=== PATIENT | male | born 1950 | race Caucasian/White ===

== ENCOUNTER 2017-06-17 05:19 | Inpatient (IN) | payer MEDICARE, SELFPAY ==
[2017-05-26 14:06] VITALS: BP 117/78; PULSE 54; RESP 16; TEMP 36.9; O2SAT 96; BMI 26.3
--- NOTE | 2017-05-26 14:23 | SDCEKG_ITS ---
Test Reason : Blood Pressure : / mmHG Vent. Rate : 052 BPM Atrial Rate : 052 BPM P-R Int : 168 ms QRS Dur : 090 ms QT Int : 410 ms P-R-T Axes : 076 -23 028 degrees QTc Int : 381 ms Sinus bradycardia Otherwise normal ECG Confirmed by LYNN MEJIA, NICHOLAS ([id number]), marketing editor JASBIR OSEGUERA ([id number]) on 05/27/2017 3:02:19 PM Referred By: READER PROJ Confirmed By:NICHOLAS BAILEY MD
[2017-06-17] VITALS (12 sets, daily range): BP systolic 93–111; BP diastolic 45–64; PULSE 40–58; RESP 14–18; TEMP 36.2–37.3; O2SAT 94–100; BMI 26.3; BMI 26.4
--- NOTE | 2017-06-17 | PROST_PTH ---
PATIENT: GAYLE ARCHULETA LOC: MS3 U#:[id number] AGE/SX: 67/M ROOM: [facility] RE06/17/[address]: Dr. Alpesh Thomson MD : 1950 BED: 1 DIS: 06/19/2017 SPEC #: [id number] RECD: 06/18/17 14:49 STATUS: BRENDAN RETyrese #: [id number] CHIDI: 06/17/17 00:[address]: Alpesh Thomson DEPT: SURGICAL PATHOLOGY RECD BY: Shashank Hastings ENTERED: 06/18/17 14:49 SP TYPE: PROSTATE OTHR DR: Dr. Kenny Gonsales MD Tissues: A - Prostate, NOS B - Lymph node of pelvis, NOS C - Lymph node of pelvis, NOS Procedures: Surgery Specimen Level V Surgery Specimen Level HEADER OPERATION: Laparoscopic robotic prostatectomy PRE-OP DIAGNOSIS: Prostate cancer TISSUE SUBMITTED: A ? Prostate, B ? Right pelvic lymph node, C ? Left pelvic lymph node MICROSCOPIC DIAGNOSIS A. Prostate, radical prostatectomy: Adenocarcinoma. See cancer checklist below. B. Right pelvic lymph node, regional lymphadenectomy: One out of one lymph node negative for carcinoma. C. Left pelvic lymph node, regional lymphadenectomy: One out of one lymph node negative for carcinoma. AM:lázaro 06/23/17 COMMENT PROSTATE CANCER (RADICAL) SUMMARY: Procedure ? radical prostatectomy Prostate size ? 4.8 x 3.5 x 3.3 cm Lymph node sampling ? pelvic lymph node dissection (see specimens B & C) Histologic type - adenocarcinoma Histologic grade (Ogden Pattern): Primary pattern - 3 Secondary pattern - 3 Total Ogden score - 6 Tumor Quantitation ? 1.5 x 1.4 x 0.5 cm Extraprostatic extension ? not identified Seminal vesicle invasion - not identified Margins ? uninvolved by invasive carcinoma. Treatment effect on carcinoma - unknown Lymph-Vascular invasion ? not identified Perineural invasion - present PATHOLOGIC STAGE: pT2a N0 Mx The above summary is in compliance with [employer] (CAP) Cancer Protocols Checklist and [place] [employer] Committee on Cancer (AJCC), Staging Manual, 8th Ed. Case has been reviewed in consultation with Dr. Pelayo who concurs with the above diagnosis. IDC:[id number] MICROSCOPIC DESCRIPTION Slides are reviewed. GROSS DESCRIPTION A - Received in fixative is one container labeled with the patient's name and designated prostate. The specimen consists of a prostate gland with attached right and left seminal vesicles. The specimen weighs 47 gm. The prostate measures 4.8 cm transversely, 3.5 cm anterior-posteriorly and 3.3 cm craniocaudally. The seminal vesicles in aggregate measure 4 x 4 x 1.2 cm. The specimen is differentially inked as follows: anterior ? red, right side ? blue, left side ? green and entire posterior surface ? black. On palpation, no rubbery nodularities are identified. The specimen is serially sectioned from apex of gland to base of gland at approximately 3 to 4 mm sections. No distinct mass lesion is identified. Sections of the seminal vesicles are grossly unremarkable. Sections are submitted as follows: 1 ? distal urethral shave margin, 2 ? proximal urethral shave margin (bladder shave), 3 ? seminal vesicles, 4 & 5 ? most basal section, 6-9 ? apex, 10-15 ? mid portion of gland, 16-18 ? base of gland. B - Received in fixative is one container labeled with the patient's name and designated right pelvic lymph node. The specimen consists of an irregular fragment of roberts-yellow fatty tissue measuring 3 x 2.5 x 1 cm. The specimen is sectioned and submitted in its entirety in two cassettes. C - Received in fixative is one container labeled with the patient's name and designated left pelvic lymph node. The specimen consists of an irregular fragment of roberts-yellow fatty tissue measuring 3.5 x 2 x 0.8 cm. The specimen is sectioned and submitted in its entirety in two cassettes. / AM:lázaro 06/19/17 TC:0 CPT: 18527, 10764 x2
[2017-06-17 07:02] LABS: Hematocrit 43.7 % (40-54); Hemoglobin 14.7 g/dl (13.0-16.5); Mean Corp Hgb Conc 33.6 g/gl (32-36); Mean Corpuscular Hgb 31.9 pg (27.0-32.0); Mean Corpuscular Volume 94.8 fL (80-94); Mean Platelet Vol. 8.8 fl (6.2-12.0); Platelet Count 222 K/mm3 (150-450); RBC Distribution Width CV 12.9 % (11.6-14.6); RBC Distribution Width SD 44.8 fl (35.1-43.9); Red Blood Count 4.61 M/mm3 (4.6-6.2); White Blood Count 4.9 K/mm3 (4.4-11.0)
[2017-06-17 07:16] LABS: Scan Indicated on CBC? Y/N NO
[2017-06-17] MEDS: Cefazolin 2 GM in 0.9% Normal Saline 100 ML IV (07:33)
--- NOTE | 2017-06-17 12:00 | PCM.OPRPT ---
Problem List (1) Prostate cancer Status: Acute Report of Operation Date of Procedure: 06/17/17 Pre-Operative Diagnosis: Prostate cancer Post-Operative Diagnosis: Same Surgery/Procedure Performed:: Laparoscopic robotic assisted radical prostatectomy, suture suspension of the urethra, bilateral pelvic lymph node dissection, EMG monitoring of the pelvic lymph nodes and urethra sphincter Description of Surgical Findings:: 67-year-old male was taken back to the operating room after smooth induction of general anesthesia he is placed in dorsal lithotomy position the abdomen was shaved prepped and draped in usual sterile fashion made a small incision supraumbilically introduced the Veress needle into the peritoneal cavity insufflated the peritoneal cavity with CO2 gas, then placed my camera trocar right arm trocar left arm trocar third arm variceal port and suction port. The robot was docked I first went behind the bladder into the duct pouch of Chicho and dissected out the right vas deferens, the left vas deferens, right seminal vesicle and left seminal vesicle and then created a space below the prostate above the fascia. I then pulled out of the pelvis and we dropped the bladder created the space of Retzius put the bladder on traction with the fourth arm cleaned off the anterior surface of the prostate incised the lateral pelvic wall and the right side inside the lateral pelvic on the left side dissected out the apex place a stitch in the dorsal vein complex I then identified the capsule the prostate and the levator and the fascia top of the prostate this was cleared off in order to allow for dissection of the neurovascular bundles off the right and left side I then went to the bladder neck transected through the bladder neck of the junction between the prostate and the bladder is of the bladder neck sparing procedure and then transected through the bladder and prostate came down to the seminal vesicles these were put on traction upwardly I then placed the prostate on lateral traction I put the EMG monitors inside the pelvic area on the lateral pelvic wall and we stimulated along the lateral pelvic wall identified the right nerve and then we went a one along the left pelvic wall identify the left nerve I then perform nerve sparing procedure in the right side came to the vessels with clips and then peeled the neurovascular bundle off the right posterior aspect of the prostate all the way to the apex then went to the left side the prostate with a traction the left side came through the pedicle of the prostate clip was placed and then released neurovascular on the left side all the way up to the apex. I then transected to the dorsal vein complex put extra stitches in the dorsal vein we then check for EMG monitoring again there was good stimulation the right side good stimulation in the left side I then transected to the through the urethra and the prostate was then removed and put in Endo Catch bag we then did Super Stiff suture suspension of the urethra started at the bladder neck at 12:00 to the 6:00 ran the suspension the sutures between the bladder neck and the urethra all the way around the catheter flushed the catheter there is no leakage and then put 10 cc in the balloon. We then dissected out the lymph nodes in the right pelvic wall these were taken out the obturator space and sent off as a specimen we then dissected the lymph nodes off the left pelvic wall these were taken from the refinery operator coking space and sent off as specimen. At the end of the case there was a little bit of oozing from the right lateral wall we placed a wrist and we also placed FloSeal to slow this down really could not get to stop completely but it was only minor amount of oozing so decided to leave it alone and then we extracted the prostate through the 1012 trocar we closed our trocar sites with stitches ports were removed the subcuticular stitches were used to close the incisions patient's anesthetic was reversed to take back to PACU in good condition. Type of Anesthesia:: General Drains: marrero - Admit VTE Documentation VTE Present on Admission: No VTE Mechan Device Prophylaxis: SCD's
[2017-06-17] MEDS: Ketorolac 15 MG/ML Vial IV ×3 (12:38→23:47)
[2017-06-17] MEDS: Docusate Sodium 100 MG Capsule 200 MG PO ×2 (14:37→21:52)
[2017-06-17] MEDS: Ciprofloxacin 500 MG Tablet PO ×2 (14:37→21:52)
[2017-06-17] MEDS: Acetaminophen 500 MG Tablet PO ×3 (14:37→21:52)
[2017-06-17] MEDS: 0.9% Normal Saline 1,000 ML 125 ML IV ×2 (14:38→22:17)
[2017-06-17] MEDS: 0.9% NaCl Peripheral Flush Adult/Peds IV (18:57)
[2017-06-18] VITALS (7 sets, daily range): BP systolic 96–107; BP diastolic 50–61; PULSE 45–60; RESP 16–18; TEMP 36.7–37.3; O2SAT 95–100
[2017-06-18] MEDS: Acetaminophen 500 MG Tablet PO ×6 (02:06→20:40)
[2017-06-18] MEDS: Ketorolac 15 MG/ML Vial IV (05:21)
[2017-06-18] MEDS: 0.9% Normal Saline 1,000 ML 125 ML IV (05:37)
--- NOTE | 2017-06-18 07:06 | PCM.PROGNOTE ---
Patient Problems: Active and Suspected Problems Prostate cancer (Acute) Subjective: Postoperative day #1 status post a radical prostatectomy labs ordered for this morning, blood pressure slightly low but he is not symptomatic or tachycardic. We will continue with IV fluids, plan advance him to regular diet he is passing gas, D[place] the leg bag and encourage ambulation today. We will Hep-Lock his IV fluids. - Physical Exam General: Alert, Oriented x3, Cooperative HEENT: Atraumatic, PERRLA, EOMI, Normocephalic Neck: Supple, No JVD, Negative Carotid Bruits Lungs: Clear to auscultation, Normal air movement Cardiovascular: Regular rate, No murmurs Abdomen: Bowel Sounds Present, Soft, Non Tender Extremities: No edema, Capillary Refill Less than 3 Seconds Skin: No rashes, No breakdown Musculoskeletal: No Tenderness to Palpation of Joints or Extremities Neurological: Cranial nerves II-XII grossly intact Psych/Mental Status: Normal Affect, Appropriate Vital Signs Temp Pulse Resp BP Pulse Ox 99.1 F 52 L 18 96/50 L 100 06/18/17 02:05 06/18/17 02:12 06/18/17 02:12 06/18/17 02:05 06/18/17 02:12 Oxygen Flow Rate 2 Oxygen Delivery Method Nasal Cannula Weight: 85.7 kg Body Mass Index (BMI) 26.4 Intake and Output for Last 24 Hours 06/16/17 06/17/17 06/18/17 23:59 23:59 23:59 Intake Total 3934 / 3934 2421 / 2421 Output Total 2150 / 2150 [birth year] Balance 1784 / 1784 471 / 471 Laboratory Tests Past 24 Hrs 06/17/17 06/17/17 05:29 06:40 WBC 4.9 RBC 4.61 Hgb 14.7 Hct 43.7 MCV 94.8 H MCH 31.9 MCHC 33.6 RDW 12.9 RDW Differential 44.8 H Plt Count 222 MPV 8.8 Blood Type A NEGATIVE Antibody Screen NEGATIVE Assessment/Plan Active and Suspected Problems Prostate cancer (Acute) Doing well after radical prostatectomy, anticipate discharge tomorrow morning check blood work this morning.
[2017-06-18 08:03] LABS: Basophil# 0.02 X10^3/uL; Basophil% 0.2 % (0-1); Eosinophil# 0.08 X10^3/uL; Eosinophils% 0.6 % (0-5); Hematocrit 35.6 % (40-54); Hemoglobin 12.1 g/dl (13.0-16.5); Lymphocyte % 16.2 % (19-41); Mean Corpuscular Hgb 32.5 pg (27.0-32.0); Mean Corpuscular Volume 95.7 fL (80-94); Mean Platelet Vol. 8.7 fl (6.2-12.0); Monocyte# 1.77 X10^3/uL; Monocyte% 13.6 % (0-10); Neutrophil # 8.98 X10^3/uL (2.7-7.7); Neutrophil % 69.2 % (47-70); Platelet Count 213 K/mm3 (150-450); RBC Distribution Width CV 12.6 % (11.6-14.6); RBC Distribution Width SD 42.5 fl (35.1-43.9); Red Blood Count 3.72 M/mm3 (4.6-6.2)
[2017-06-18 08:06] LABS: Differential Indicated SCAN CRITERIA MET; POSITIVE COUNT NO; POSITIVE DIFFERENTIAL YES; POSITIVE MORPHOLOGY NO
[2017-06-18 08:26] LABS: Anion Gap 7 (5-15); BUN 14 mg/dL (7-18); BUN/Creat Ratio 11.6 RATIO (10-20); Calcium,Total 7.7 mg/dL (8.5-10.1); Chloride 109 mmol/L (98-107); Creatinine, Serum 1.21 mg/dL (0.70-1.30); EST Glomerular Filtration Rate 64 mL/min (>60); Est Glom Filt Rate - Afr Amer 77 mL/min (>60); Estimated Creatinine Clearance 61.17 ml/min; Glucose 127 mg/dL (70-110); Potassium 3.6 mmol/L (3.5-5.1); Sodium Level 143 mmol/L (136-145)
--- NOTE | 2017-06-18 10:10 | NURSING ---
pATIENT ASSISTED WITH CHANGING TO LEG BAG AND WAS UP WALKING HALLWAYS. PT TOLERATED WELL.
[2017-06-18] MEDS: Ciprofloxacin 500 MG Tablet PO ×2 (10:14→20:39)
[2017-06-18] MEDS: Docusate Sodium 100 MG Capsule 200 MG PO ×2 (10:14→20:40)
--- NOTE | 2017-06-18 10:40 | CASEMGMT ---
RN NAREN Face to Face with patient for initial transition planning/care coordination assessment. RN CM introduced self and role at [facility]. Patient lying in bed, alert and oriented, family at bedside. Patient willing to participate in assessment and is able to answer all questions appropriately. Care providers, pharmacy, and demographics verified. See link attached. Patient wishes to discharge home, denies need for home health nor DME at this time. Patient states he has no further needs or concerns at this time. CM to follow for discharge planning needs that may arise. Disposition Plan: Patient to discharge home with family support and follow-up plans in place.
[2017-06-19 02:20] VITALS: BP 102/57; PULSE 57; RESP 16; TEMP 36.9; O2SAT 99
[2017-06-19] MEDS: Acetaminophen 500 MG Tablet PO ×3 (02:33→10:42)
--- NOTE | 2017-06-19 07:01 | PCM.DC.URO ---
Discharge Diet: Light diet - advance as tolerated Discharge Activity: May Not Drive, May not drive while taking narcotic pain medications. Call your doctor if your incision/area has: Continuous Slow Oozing, Sudden Increased Bleeding, Increased Pain/ Swelling, Increased Redness, Foul Smelling Discharge, Swelling at the incision site Suture Line Care: Avoid Pulling/Pushing, Avoid Pinching/Bending Instructions: Catheter-Associated Urinary Tract Infections, Emptying and Cleaning Your Urinary Catheter Bag, Discharge Instructions for Radical Prostatectomy, Discharge Instructions: Caring for Your Indwelling Urinary Catheter, Discharge Instructions: Caring for Your Leg Bag Allergies/Adverse Reactions: Allergies No Known Allergies Allergy (Verified 05/26/17 14:00) Medications to take at Discharge Ascorbic Acid [Vitamin C] 1,000 mg PO BID 05/26/17 Cholecalciferol (Vitamin D3) [Vitamin D3] 2,000 unit PO DAILY 05/26/17 Garlic 100 mg PO DAILY 05/26/17 Multivitamins,Ther W-Minerals [Multivitamin With Minerals] 1 tablet PO DAILY 05/26/17 Simvastatin [Zocor] 20 mg PO QHS 05/26/17 Ciprofloxacin [Cipro] 500 mg PO BID #14 tab 06/19/17 Docusate Sodium [Colace] 100 mg PO BID #20 cap 06/19/17 Hydrocodone/Acetaminophen [[place] 5-325 Tablet] 1 ea PO Q4H PRN PRN #14 tab 06/19/17 The following prescriptions were given: Hydrocodone/Acetaminophen [[place] 5-325 Tablet] 1 ea PO Q4H PRN PRN #14 tab PRN Reason: Pain Ciprofloxacin [Cipro] 500 mg PO BID #14 tab Docusate Sodium [Colace] 100 mg PO BID #20 cap Primary Care Physician: Clarke Gonsales MD [Primary Care Provider] - Please Follow Up With: Alpesh Thomson MD When: appt Jun 25 at 9:15 am to remove marrero
--- NOTE | 2017-06-19 07:03 | PCM.DC.SUM ---
Discharge Date and Diagnosis - Problem List Patient Problems: Active and Suspected Problems Prostate cancer (Acute) Date of Admission: 06/17/17 Date of Discharge: 06/19/17 - Primary Discharge Diagnosis Active and Suspected Problems Prostate cancer (Acute) Hospital Course and Treatment Operations: - - robotic radical prostatectomy Procedures: None Summary of Care Provided: The patient is a 67 year old male who underwent a laparoscopic robotic assisted radical prostatectomy postoperative course was unremarkable. Postoperative day #1 he is walking around tolerating regular regular diet passing gas postoperative day #2 he was in good condition IV hep-locked incisions clean and intact Marrero in place a leg bag and urine nice and clear he will go home with a leg bag and follow up in 1 week for catheter removal he was given discharge instructions. Discharge Diet: Light diet - advance as tolerated Discharge Activity: May Not Drive, May not drive while taking narcotic pain medications. Call your doctor if your incision/area has: Continuous Slow Oozing, Sudden Increased Bleeding, Increased Pain/ Swelling, Increased Redness, Foul Smelling Discharge, Swelling at the incision site Suture Line Care: Avoid Pulling/Pushing, Avoid Pinching/Bending Home Medications: Medications to take at Discharge Ascorbic Acid [Vitamin C] 1,000 mg PO BID 05/26/17 Cholecalciferol (Vitamin D3) [Vitamin D3] 2,000 unit PO DAILY 05/26/17 Garlic 100 mg PO DAILY 05/26/17 Multivitamins,Ther W-Minerals [Multivitamin With Minerals] 1 tablet PO DAILY 05/26/17 Simvastatin [Zocor] 20 mg PO QHS 05/26/17 Ciprofloxacin [Cipro] 500 mg PO BID #14 tab 06/19/17 Docusate Sodium [Colace] 100 mg PO BID #20 cap 06/19/17 Hydrocodone/Acetaminophen [[place] 5-325 Tablet] 1 ea PO Q4H PRN PRN #14 tab 06/19/17 Following Prescrptions Were Given to Patient: Hydrocodone/Acetaminophen [[place] 5-325 Tablet] 1 ea PO Q4H PRN PRN #14 tab PRN Reason: Pain Ciprofloxacin [Cipro] 500 mg PO BID #14 tab Docusate Sodium [Colace] 100 mg PO BID #20 cap Primary Care Physician: Clarke Gonsales MD [Primary Care Provider] - Please Follow Up With: Alpesh Thomson MD When: appt Jun 25 at 9:15 am to remove marrero Patient Instructions: Catheter-Associated Urinary Tract Infections, Emptying and Cleaning Your Urinary Catheter Bag, Discharge Instructions for Radical Prostatectomy, Discharge Instructions: Caring for Your Indwelling Urinary Catheter, Discharge Instructions: Caring for Your Leg Bag Meaningful Use Info Meaningful Use Diagnoses (Choose all that apply): None applicable
[2017-06-19 07:46] VITALS: O2SAT 97
[2017-06-19] MEDS: Ciprofloxacin 500 MG Tablet PO (10:43)
[2017-06-19] MEDS: Docusate Sodium 100 MG Capsule 200 MG PO (10:43)
[2017-06-19 10:52] VITALS: BP 100/60; PULSE 57; RESP 18; TEMP 36.9; O2SAT 99
[2017-06-19 13:52] LABS: Pathologist Review Reviewed
== END 2017-06-19 11:45 | disposition home or self-care (01) | DRG 708 ==
LOC: ACINP 05:20 → MS3 05:30
PROVIDERS: Anesthesiology; Admitting Provider Urology; Family Provider Family Medicine; PCP Family Medicine; Visit Provider Urology
PROC: 0VT04ZZ Resection of Prostate, Percutaneous Endoscopic Approach (ICD-10-PCS; CPT 55866; principal; 2017-06-17 07:10)
DX: C61 Malignant neoplasm of prostate (principal)
CPT/HCPCS: 36415; 80048; 85025; 85027; 86850; 86900; 88307; 88309; 97802; J7030; J7120; A4216; J2405

== ENCOUNTER → 2017-08-06 10:17 | Outpatient (CLI) | payer MEDICARE, SELFPAY ==
[2017-08-06 11:45] LABS: PSA,Total- Diagnostic < 0.01 ng/mL (0.0-4.0)
== END ==
PROVIDERS: Family Provider Family Medicine; PCP Family Medicine; Visit Provider Urology
DX: C61 Malignant neoplasm of prostate (principal)
CPT/HCPCS: 36415; 84153

== ENCOUNTER → 2018-05-27 13:32 | Outpatient (CLI) | payer MEDICARE, SELFPAY ==
[2017-06-17 13:56] VITALS: BMI 26.4
[2018-05-27 14:49] LABS: PSA,Total- Diagnostic < 0.01 ng/mL (0.0-4.0)
== END ==
PROVIDERS: Family Provider Family Medicine; PCP Family Medicine; Referring Provider Urology; Visit Provider Urology
DX: C61 Malignant neoplasm of prostate (principal)
CPT/HCPCS: 36415; 84153

== ENCOUNTER → 2018-12-01 | Outpatient (CLI) | payer MEDICARE, SELFPAY ==
[2018-12-01 10:31] LABS: ALB/GLOB Ratio 1.1 RATIO (0.9-2.4); AST(SGOT) 16 U/L (15-37); Alanine Aminotransfer ALT/SGPT 22 U/L (16-61); Albumin, Serum 3.8 g/dL (3.2-5.0); Alkaline Phosphatase 55 U/L (45-117); Anion Gap 3 (5-15); BUN 14 mg/dL (7-18); BUN/Creat Ratio 10.8 RATIO (10-20); Calcium,Total 8.5 mg/dL (8.5-10.1); Chloride 105 mmol/L (98-107); Cholesterol 193 mg/dL (200); EST Glomerular Filtration Rate 58 mL/min (>60); Est Glom Filt Rate - Afr Amer 70 mL/min (>60); Globulin 3.4 g/dL (2.2-4.2); Glucose 87 mg/dL (74-106); High Density Lipoprotein 50 mg/dL; Potassium 3.8 mmol/L (3.5-5.1); Protein, Total 7.2 g/dL (6.4-8.2); Sodium Level 140 mmol/L (136-145); Triglycerides 86 mg/dL; Very Low Density Lipoprotein 17 mg/dL (5-40)
== END | disposition home or self-care (01) ==
PROVIDERS: Family Provider Family Medicine; PCP Family Medicine; Referring Provider Family Medicine; Visit Provider Family Medicine
DX: E78.5 Hyperlipidemia, unspecified (principal)
CPT/HCPCS: 36415; 80053; 80061

== ENCOUNTER → 2018-12-16 | Outpatient (CLI) | payer MEDICARE, SELFPAY ==
[2017-06-17 13:56] VITALS: BMI 26.4
[2018-12-16 12:47] LABS: PSA,Total- Diagnostic < 0.01 ng/mL (0.0-4.0)
== END | disposition home or self-care (01) ==
LOC: LAB.FUTURE 09:38
PROVIDERS: Family Provider Family Medicine; PCP Family Medicine; Referring Provider Urology; Visit Provider Urology
DX: C61 Malignant neoplasm of prostate (principal)
CPT/HCPCS: 36415; 84153

== ENCOUNTER → 2019-07-12 15:15 | Outpatient (CLI) | payer MEDICARE, SELFPAY ==
[2017-06-17 13:56] VITALS: BMI 26.4
[2019-07-12 17:00] LABS: PSA,Total- Diagnostic < 0.01 ng/mL (0.0-4.0)
== END ==
PROVIDERS: PCP Family Medicine; Referring Provider Urology; Visit Provider Urology
DX: C61 Malignant neoplasm of prostate (principal)
CPT/HCPCS: 36415; 84153

== ENCOUNTER → 2020-02-29 15:05 | Outpatient (CLI) | payer MEDICARE, SELFPAY ==
[2017-06-17 13:56] VITALS: BMI 26.4
--- NOTE | 2020-02-29 15:10 | RAD_ITS ---
STUDY: X-RAY - UNILATERAL RIBS ( RIGHT ) WITH CHEST REASON FOR EXAM: Male, 70 years old. PAIN IN RIGHT LOWER RIBS FOR ABOUT 3 YEARS NOW NOT GETTING ANY BETTER. NO KNOWN INJURY. PATIENT HAS A HX OF PROSTATE CA. TECHNIQUE - RIBS: 6 view(s) of the ribs. TECHNIQUE - CHEST: Single PA view of the chest. COMPARISON: None. FINDINGS - RIBS: Normal visualized ribs without a demonstrated fracture. FINDINGS - CHEST: The lungs are clear and expanded. There is no demonstrated pleural abnormality. Normal size heart. Normal mediastinum and sridevi. Normal visualized pulmonary arteries. Normal visualized aortic arch and descending thoracic aorta. There are diffuse degenerative changes of the visualized thoracic spine. Normal visualized ribs, clavicles, and shoulders. There is no demonstrated abnormality of the visualized soft tissue structures of the upper abdomen. RAD/Ribs Uni Min 3V w/PA Chest IMPRESSION: RIBS: Normal x-ray examination of the ribs. CHEST: Degenerative changes of the thoracic spine. Electronically Signed: Nasir Hardy MD at 16:10 EDT , Service support ,
== END ==
PROVIDERS: PCP Family Medicine; Referring Provider Family Medicine; Visit Provider Family Medicine
DX: R07.81 Pleurodynia (principal)
CPT/HCPCS: 71101

== ENCOUNTER → 2020-06-12 13:51 | Outpatient (CLI) | payer MEDICARE, SELFPAY ==
[2017-06-17 13:56] VITALS: BMI 26.4
[2020-06-12 15:58] LABS: PSA,Total- Diagnostic < 0.01 ng/mL (0.0-4.0)
== END ==
PROVIDERS: PCP Family Medicine; Referring Provider Urology; Visit Provider Urology
DX: C61 Malignant neoplasm of prostate (principal)
CPT/HCPCS: 36415; 84153

== ENCOUNTER 2021-06-13 08:51 | Outpatient (CLI) | payer MEDICARE, SELFPAY ==
[2021-06-13 09:50] LABS: ALB/GLOB Ratio 1.1 RATIO (0.9-2.4); AST(SGOT) 20 U/L (15-37); Alanine Aminotransfer ALT/SGPT 30 U/L (16-61); Alkaline Phosphatase 53 U/L (45-117); Anion Gap 4 (5-15); BUN 15 mg/dL (7-18); BUN/Creat Ratio 12.4 RATIO (10-20); Calcium,Total 9.4 mg/dL (8.5-10.1); Chloride 107 mmol/L (98-107); Cholesterol 240 mg/dL (200); Creatinine, Serum 1.21 mg/dL (0.70-1.30); EST Glomerular Filtration Rate 63 mL/min (>60); Est Glom Filt Rate - Afr Amer 76 mL/min (>60); Globulin 3.7 g/dL (2.2-4.2); Glucose 92 mg/dL (74-106); High Density Lipoprotein 57 mg/dL; PSA,Total- Diagnostic < 0.01 ng/mL (0.0-4.0); Potassium 4.1 mmol/L (3.5-5.1); Protein, Total 7.7 g/dL (6.4-8.2); Sodium Level 140 mmol/L (136-145); Triglycerides 88 mg/dL; Very Low Density Lipoprotein 18 mg/dL (5-40)
== END 2021-06-13 23:59 | disposition short-term general hospital (02) ==
PROVIDERS: PCP Family Medicine; Referring Provider Urology; Visit Provider Urology
DX: C61 Malignant neoplasm of prostate (principal); E78.5 Hyperlipidemia, unspecified
CPT/HCPCS: 36415; 80053; 80061; 84153

== ENCOUNTER → 2022-07-22 | Outpatient (CLI) | payer MEDICARE, SELFPAY ==
[2022-07-22 08:02] LABS: ALB/GLOB Ratio 1.1 RATIO (0.9-2.4); AST(SGOT) 21 U/L (15-37); Alanine Aminotransfer ALT/SGPT 27 U/L (16-61); Albumin, Serum 3.7 g/dL (3.2-5.0); Alkaline Phosphatase 55 U/L (45-117); Anion Gap 6 (5-15); BUN 19 mg/dL (7-18); Calcium,Total 8.6 mg/dL (8.5-10.1); Chloride 107 mmol/L (98-107); Cholesterol 288 mg/dL (200); Creatinine, Serum 1.27 mg/dL (0.70-1.30); EST Glomerular Filtration Rate 59 mL/min (>60); Est Glom Filt Rate - Afr Amer 72 mL/min (>60); Globulin 3.5 g/dL (2.2-4.2); Glucose 102 mg/dL (74-106); High Density Lipoprotein 43 mg/dL; PSA,Total- Diagnostic < 0.01 ng/mL (0.0-4.0); Potassium 4.1 mmol/L (3.5-5.1); Protein, Total 7.2 g/dL (6.4-8.2); Sodium Level 143 mmol/L (136-145); Triglycerides 130 mg/dL; Very Low Density Lipoprotein 26 mg/dL (5-40)
== END | disposition home or self-care (01) ==
LOC: LAB 06:06
PROVIDERS: PCP Family Medicine; Referring Provider Urology; Visit Provider Urology
DX: C61 Malignant neoplasm of prostate (principal); E78.5 Hyperlipidemia, unspecified
CPT/HCPCS: 36415; 80053; 80061; 84153

== ENCOUNTER → 2023-08-10 | Outpatient (CLI) | payer MEDICARE, SELFPAY ==
--- OUTSIDE RECORDS SUMMARY | 2023-08-10 08:35 | XMS RPT_ITS | CCD ---
Author Name Unknown Address [address] [place] [address] Organization [facility] Care Team Providers Care It Infrastructure Engineer Name Role Phone AMALIA JOEL Nick Unavailable Unavailable USAMA ASHTON Unavailable UnavailJOEL Huynh Unavailable Unavailable JOEL HOLLAND Unavailable Unavailable JOEL HOLLAND Unavailable Unavailable Problems Problem Classification Problem Date Documented Da te Episodic/Chronic Unclassified (1 source) Encounter for screening for malignant neoplasm of colon; Translations: [Encounter for screening for malignant neoplasm of colon] Onset: 02-24-2017 Episodic Results Test Name Value Interpretation Reference Range Facil ity Encounters Encounter Date Encounter Type Care Provider Facility Start: 02-24-2017 End: 02-24-2017 Ambulatory JOEL HOLLAND [facility] Start: 02-03-2017 End: 02-05-2017 Ambulatory JOEL Park [facility]KE[facility] Summary Purpose Family History No Family History Records Found Advance Directives No Advanced Directives Records Found Additional Source Comments (unrecognized sect ion and content) No Status Records Found INFORMATION SOURCE (unrecogn ized section and content) FOR RECORDS PERTAINING TO PATIENTS WHO ARE OR HAVE BEEN ENROLLED IN A CHEMICAL DEPENDENCY/SUBSTANCEABUSE PROGRAM, SOME INFORMATION MAY BE OMITTED. This clinical summary was aggregated from multiple sources. Caution should be exercised in using it in the provision of clinical care. This summary normalizes information from multiple sources, and as a consequence, information in this document may materially change the coding, format and clinical context of patient data. In addition, data may be omitted in some cases. CLINICAL DECISIONS SHOULD BE BASED ON THE PRIMARY CLINICAL RECORDS. [employer] provides no warranty or guarantee of the accuracy or completeness of information in this document.
[2023-08-10 09:41] LABS: PSA,Total- Diagnostic < 0.01 ng/mL (0.0-4.0)
== END | disposition home or self-care (01) ==
PROVIDERS: PCP Family Medicine; Referring Provider Urology; Visit Provider Urology
DX: C61 Malignant neoplasm of prostate (principal)
CPT/HCPCS: 36415; 84153